=== PATIENT | female | born 1990 | race Two or more races ===

== ENCOUNTER 2022-08-24 17:45 | Emergency (ER) | payer SELFPAY ==
[~2022-08-24] VITALS: Ht 162.6 cm; Wt 68.8 kg
[2022-08-24 17:47] VITALS: BP 136/102
[2022-08-24] MEDS ORDERED: PROZ20CA11 PO (18:20)
[2022-08-24] MEDS ORDERED: SERO1TAB2 PO (18:20)
[2022-08-24] MEDS ORDERED: HALO5TAB33 PO (18:20)
[2022-08-24] MEDS ORDERED: SUBO8MIS SL (18:20)
== END 2022-08-24 22:42 | disposition left against medical advice (07) ==
LOC: M ED 17:45
DX: Z53.21 Procedure and treatment not carried out due to patient leaving prior to being seen by health care provider (principal)

== ENCOUNTER 2022-08-24 23:03 | Emergency (ER) | payer SELFPAY ==
[~2022-08-24] VITALS: Ht 162.6 cm; Wt 75.0 kg
[~2022-08-24 23:03] MED LIST: HALO5TAB33 PO; PROZ20CA11 PO; SERO1TAB2 PO; SUBO8MIS SL
[2022-08-24 23:04] VITALS: BP 156/101
== END 2022-08-25 01:25 | disposition left against medical advice (07) ==
LOC: M ED 23:03
DX: Z53.21 Procedure and treatment not carried out due to patient leaving prior to being seen by health care provider (principal)

== ENCOUNTER 2023-01-01 00:02 | Emergency (ER) | payer OTHER, MEDICAID ==
[~2023-01-01] VITALS: Ht 165.1 cm; Wt 68.9 kg
[2023-01-01 00:32] VITALS: BP 104/62
== END 2023-01-01 03:01 | disposition left against medical advice (07) ==
LOC: M ED 00:02 → EDSEX 00:02 → EDBD 00:02 → M ED 03:01
DX: F19.959 Other psychoactive substance use, unspecified with psychoactive substance-induced psychotic disorder, unspecified (principal); R56.9 Unspecified convulsions; S60.221A Contusion of right hand, initial encounter; S01.01XA Laceration without foreign body of scalp, initial encounter; Z53.20 Procedure and treatment not carried out because of patient's decision for unspecified reasons; F31.9 Bipolar disorder, unspecified; Z79.899 Other long term (current) drug therapy; Z91.013 Allergy to seafood

== ENCOUNTER → 2023-01-31 | Outpatient (REF) | LOC: M PLAIMG 15:04 | PROVIDERS: ATTEND Internal Medicine | DX: R52 Pain, unspecified (principal) ==